=== PATIENT | female | born 1990 | race Hispanic/Latino ===

== ENCOUNTER 2019-04-20 22:13 | Emergency (ER) | payer OTHER ==
[2019-04-20] MEDS ORDERED: ACETAMINOPHEN EXTRA STRENGTH 500 MG TABLET ONE (22:41)
[2019-04-20] MEDS ORDERED: IBUPROFEN 800 MG TAB ONE (22:41)
== END 2019-04-20 23:16 | disposition home or self-care (01) ==
LOC: EDH 22:13
DX: J11.1 Influenza due to unidentified influenza virus with other respiratory manifestations (principal)

== ENCOUNTER 2021-01-23 04:01 | Emergency (ER) | payer BC ==
[~2021-01-23] VITALS: Ht 149.9 cm; Wt 76.2 kg
[2021-01-23 04:04] VITALS: BP 128/83
[2021-01-23 05:28] LABS: APPEARANCE,URINE Cloudy (CLEAR); BILIRUBIN,URINE Small (NEGATIVE); COLOR,URINE Dark Yellow (YELLOW); GLUCOSE, URINE (UA) Negative (NEGATIVE); KETONES,URINE Trace mg/dL (NEGATIVE); LEUKOCYTE ESTERASE ,URINE Trace (NEGATIVE); NITRATE,URINE Negative (NEGATIVE); OCCULT BLOOD,URINE Negative (NEGATIVE); PH,URINE 6.5 (5.0-8.0); PROTEIN,URINE Negative (NEGATIVE)
[2021-01-23] MEDS ORDERED: DiphenhydrAMINE HCL 25 MG/10 ML ELIXIR UDCUP PO ONE (05:30)
[2021-01-23] MEDS ORDERED: ONDANSETRON ODT 4MG TAB SL ONE (05:30)
[2021-01-23] MEDS ORDERED: FAMOTIDINE 20MG TAB PO ONE (05:30)
[2021-01-23] MEDS ORDERED: MAG/ALUM/SIMETH 30 ML UDCUP PO ONE (05:30)
[2021-01-23] MEDS ORDERED: PANTOPRAZOLE 40 MG TAB DR PO ONE (05:30)
[2021-01-23 05:35] LABS: HCG,QUAL RESULT NEGATIVE (NEGATIVE)
[2021-01-23 05:40] LABS: BACTERIA,URINE None Seen /HPF (None Seen); RBC,URINE 0-1 /HPF (0-1); SQUAMOUS EPITHELIAL CELL,UR Moderate /HPF (0-2)
[2021-01-23] MEDS ORDERED: METO-296 PO (06:06)
[2021-01-23] MEDS ORDERED: DICY20TA2 PO (06:06)
[2021-01-23] MEDS ORDERED: PANT40TA PO (06:06)
[2021-01-23] MEDS ORDERED: ONDA4TAB10 PO (06:06)
== END 2021-01-23 06:19 | disposition home or self-care (01) ==
LOC: EDH 04:01
DX: K29.70 Gastritis, unspecified, without bleeding (principal); Z79.899 Other long term (current) drug therapy
CPT/HCPCS: 81001; 81025